=== PATIENT | female | born 1950 | race Caucasian/White ===

== ENCOUNTER → 2017-01-06 | Outpatient (CLI) | payer MEDICARE, OTHER | LOC: OPSV 08:00 → CT 10:30 | DX: E86.0 Dehydration (principal); C50.819 Malignant neoplasm of overlapping sites of unspecified female breast; C50.919 Malignant neoplasm of unspecified site of unspecified female breast; R91.8 Other nonspecific abnormal finding of lung field; R06.02 Shortness of breath; R10.9 Unspecified abdominal pain; N20.0 Calculus of kidney | CPT/HCPCS: 71260; 96360; 96361; J7030; J7050; Q9965 ==

== ENCOUNTER → 2017-01-17 | Outpatient (CLI) | payer MEDICARE, OTHER | LOC: HEART CORB 15:01 | DX: C50.819 Malignant neoplasm of overlapping sites of unspecified female breast (principal); C50.919 Malignant neoplasm of unspecified site of unspecified female breast | CPT/HCPCS: 93306 ==

== ENCOUNTER → 2017-01-24 | Outpatient (CLI) | payer MEDICARE, OTHER | LOC: EMI 08:44 | DX: C50.819 Malignant neoplasm of overlapping sites of unspecified female breast (principal); R06.02 Shortness of breath; R10.9 Unspecified abdominal pain; R92.0 Mammographic microcalcification found on diagnostic imaging of breast; R07.89 Other chest pain; Z03.89 Encounter for observation for other suspected diseases and conditions ruled out | CPT/HCPCS: 70553; A9577; J7050 ==